=== PATIENT | female | born 1975 | race Caucasian/White ===

== ENCOUNTER 2021-01-27 16:16 | Outpatient (CLI) | payer OTHER, SELFPAY | END 2021-01-27 16:17 | disposition home or self-care (01) | LOC: ANHCOVIDVC 16:17 | PROVIDERS: PCP Urology | DX: Z23 Encounter for immunization (principal) | CPT/HCPCS: 0001A; 91300 ==

== ENCOUNTER 2021-02-17 13:16 | Outpatient (CLI) | payer OTHER, SELFPAY | END 2021-02-17 13:17 | disposition home or self-care (01) | LOC: ANHCOVIDVC 13:16 | PROVIDERS: PCP Urology | DX: Z23 Encounter for immunization (principal) | CPT/HCPCS: 0002A; 91300 ==